=== PATIENT | female | born 1975 ===

== ENCOUNTER → 2023-03-01 00:39 | Outpatient (CLI) | payer OTHER, SELFPAY ==
--- NOTE | 2023-03-01 | DI.MAMMO_ITS ---
Exam(s) MAMMO SCREENING EXAM: MAMMO SCREENING CLINICAL HISTORY: SCREENING, Z12.31 TECHNIQUE: Mammograms were interpreted according to the usual protocol including computer analysis w [id number] CAD system, tomosynthesis and C-view imaging. COMPARISON: The patient has had previous exams at [facility] in [place], [place] which were requested but not yet received. FINDINGS: The breasts are composed of mainly fatty density , Breast Density category A. No suspicious masses or suspicious microcalcifications are seen. No skin thickening or abnormal axillary lymph nodes are seen. IMPRESSION: BI-RADS Category 1, Negative mammogram Yearly screening mammography is recommended. Breast Density - Category A, fatty density. A negative radiographic report should not delay biopsy if a dominant or clinically suspicious mass is present. Up to ten percent of cancers are not identified on mammography. A negative report may reinforce clinical impression. Adenosis and dense breasts may obscure an underlying neoplasm. False positive reports average 6 to 10%. Patient will receive a letter notifying them of these results.
== END ==
PROVIDERS: Visit Provider Family Medicine
DX: Z12.31 Encounter for screening mammogram for malignant neoplasm of breast (principal)
CPT/HCPCS: 77063; 77067

== ENCOUNTER 2023-12-08 19:36 | Emergency (ER) | payer OTHER, SELFPAY ==
[2023-12-08 19:40] VITALS: BP 182/92; PULSE 81; RESP 18; TEMP 36.4; O2SAT 95
--- NOTE | 2023-12-08 20:40 | W.ED.GENAD ---
Discharge Plan Disposition Patient Disposition: Home Condition: Stable Discharge Details Clinical Impression: Dental trauma Primary Care Provider: Chelita Whatley ED Provider: Gus Acosta Discharge Instructions Instructions: Fractured Tooth Additional Instructions: You were seen in the emergency department for your dental fracture of tooth #18. You need to see a dentist soon as possible for possible extraction versus better capping of your fracture. You were capped with temporary dental cement here in the department. Please use adequate dosing of Tylenol and ibuprofen for any pain as needed, return for signs of infection, especially with decreased range of motion of the jaw, vocal changes, inability to handle your secretions. Referrals: [facility] [Provider Group] Chelita Whatley [Primary Care Provider] - Discharge Data Discharge Date/Time-TO BE ENTERED AT DEPARTURE: 12/08/23 21:18 HPI General Date/Time Provider Initiated Documentation: 12/08/23 19:43. HPI Narrative: 48 year-old female presents to ED today by POV/ambulating with a chief complaint of dental fracture while eating a milk dud with onset just prior to arrival. Quality described as very sensitive to any stimuli- painful, no radiation to trismus, facial swelling or erythema, vocal changes, purulent discharge in the mouth. Severity is described as severe. Palliating factors include nothing specific attempted- called dentist offices. Provoking factors include nothing specific. Patient not anticoagulated. Related Data Allergies Allergy/AdvReac Type Severity Reaction Status Date / Time No Known Allergies Allergy Unverified 12/08/23 19:42 General Stated Complaint: DentalOral MANDIE: 4 Review of Systems All systems reviewed & are unremarkable except as noted in HPI and below Exam Narrative Exam Narrative: GENERAL APPEARANCE: Well-nourished, non-toxic, awake and alert, atraumatic, no acute distress. SKIN: Warm, pink, dry, intact, without rashes/lesions/ulcerations. HEAD: Normocephalic, atraumatic, normal hair distribution for gender/age. EYES: Normal conjunctiva, no exudates on lids/lashes. ENT: Nares patent, no circumoral cyanosis, no facial swelling, fractured #18 molar, exposed dentin, no visible gingival abscess, no trismus, no vocal changes NECK: Supple, trachea midline, painless cervical ROM. LUNGS/CHEST: Non-labored respirations, normal A/P diameter, symmetrical expansion, no chest wall deformity HEART (CV/PV): No peripheral edema, no JVD. ABDOMEN: Soft, non-distended, no guarding. MSK: Normal ROM, no swelling/deformity to bilateral UEs or LEs, moving all extremities without weakness, no cyanosis, spine midline without tenderness, normal curvature. NEURO: Mental Status AAOx4 - alert to person, place, time, events No facial droop, no forehead involvement. Motor: No focal weakness - strength 5/5 in bilateral UEs and LEs, proximal and distal, symmetric. Sensory: sensation intact to light touch globally. Gait normal: patient ambulated without ataxia into ED room. PSYCH: euthymic, cooperative, pleasant, appropriate speech Course Vital Signs Vital signs: Vital Signs Temperature 36.4 C L 12/08/23 19:40 Pulse 81 12/08/23 19:40 Respiratory Rate 18 12/08/23 19:40 Blood Pressure 182/92 H 12/08/23 19:40 Pulse Oximetry 95 12/08/23 19:40 Temperature 36.4 C L 12/08/23 19:40 Temperature Source Skin 12/08/23 19:40 Pulse 81 12/08/23 19:40 Respiratory Rate 18 12/08/23 19:40 Respiratory Effort Normal 12/08/23 19:41 Blood Pressure 182/92 H 12/08/23 19:40 Blood Pressure Position Sitting 12/08/23 19:40 Pulse Oximetry 95 12/08/23 19:40 Oxygen Delivery Method Room Air 12/08/23 19:40 Oxygen Flow Rate 0 12/08/23 19:40 Procedures Other Description: Performed dental fracture capping with quick cement, mixed the dental cement catalyst and applied with a linear applicator, patient tolerated the procedure well, no complications, no bleeding, tested with p.o. challenge of ice water without sensitivity prior to discharge. Medical Decision Making This dictation utilizes [id number] dictation software and may contain unedited grammatical errors. 48 year-old female presents to ED today by POV/ambulating with a chief complaint of dental fracture while eating a milk dud with onset just prior to arrival. Quality described as very sensitive to any stimuli- painful, no radiation to trismus, facial swelling or erythema, vocal changes, purulent discharge in the mouth. Severity is described as severe. Palliating factors include nothing specific attempted- called dentist offices. Provoking factors include nothing specific. Patients' medical history: noncontributory. Family and social history: noncontributory. Pertinent exam findings / vital signs include fracture #18 tooth, no abscess seen. Differential / pathologies of concern include dental fracture. Diagnostic studies of: -None. Interventions of: -Capped tooth with dental cement. ED Course/Assessment/Plan: 48-year-old female presents with acute dental fracture and exposed dentin. She was eating a milk bed when her #18 molar cracked, there is a significant area that is exposed, I did It with dental cement and advised urgent dental follow-up for possible extraction, counseled the patient that there is no signs of infection though may want to develop she may return for antibiotics. Counseled on therapeutic dosing of Tylenol and ibuprofen, she passed a p.o. trial of ice water without sensitivity prior to discharge. Findings not consistent with dental infection. Disposition of Dental Trauma. Patient verbalized understanding of the plan and return to ED criteria and engaged in shared decision making. Medical Records Medical records reviewed: Yes I reviewed the patient's medical records. Quality:[facility] Health Related Social Needs: No Data to Display [facility] All Active Problems (Updated 12/08/23 @ 21:05 by PRIYANKA Leblanc) Dental trauma (Acute) Social History Smoking/Tobacco Use Status: Never Smoking risk assessment performed?: Yes Alcohol Intake: current Alcohol Intake frequency: holidays/special occasions only Substance use type: does not use
== END 2023-12-08 21:18 | disposition home or self-care (01) ==
PROVIDERS: Emergency Provider Physician Assistant; PCP Family Medicine
DX: S02.5XXA Fracture of tooth (traumatic), initial encounter for closed fracture; X58.XXXA Exposure to other specified factors, initial encounter
CPT/HCPCS: 99282; 99283

== ENCOUNTER 2024-05-09 16:33 | Outpatient (REF) | payer OTHER, SELFPAY | END 2024-05-09 16:34 | disposition home or self-care (01) | LOC: LBN 16:33 | PROVIDERS: PCP Family Medicine; Visit Provider Physician Assistant Medical | DX: J02.9 Acute pharyngitis, unspecified (principal) | CPT/HCPCS: 87070 ==